=== PATIENT | male | born 1950 | race Caucasian/White ===

== ENCOUNTER → 2020-01-27 11:23 | Outpatient (CLI) | payer MEDICARE, SELFPAY ==
--- NOTE | ~2020-01-27 | CT_ITS ---
EXAMINATION:CT lung screening DATE: 01/27/2020 11:40 INDICATION: Personal history of tobacco dependence. Smoker who quit 11 years ago with 120 pack year h istory. TECHNIQUE: Computed tomography (CT) of the chest was performed without intravenous contrast. Automate d exposure control and iterative reconstruction technique were employed. The dose-length product (DLP ) was 362.55 mGy-cm. COMPARISON: Chest CT 01/09/2019 FINDINGS: The lungs demonstrate mild atelectasis. Again seen is a 6 mm nodule in left upper lobe. Dejan cified right lung nodules and calcified right hilar lymph nodes are consistent with old granulomatous disease. No pleural effusion. The heart size is normal. There are coronary artery calcifications. No pericardial effusion. There is a small sliding hiatal hernia. There is mild thoracic spondylosis. IMPRESSION: 1. Lung-RADS category 2: Benign appearance or behavior. Continue annual screening with noncontrast lo w-dose chest CT in 12 months. Reviewed, dictated and finalized at location A. CRUSHER IMPRESSION: 1. Lung-RADS category 2: Benign appearance or behavior. Continue annual screeni ng with noncontrast low-dose chest CT in 12 months.
== END ==
PROVIDERS: PCP Student in an Organized Health Care Education/Training Program; Visit Provider Student in an Organized Health Care Education/Training Program
DX: Z12.2 Encounter for screening for malignant neoplasm of respiratory organs (principal); Z87.891 Personal history of nicotine dependence
CPT/HCPCS: G0297

== ENCOUNTER 2020-11-26 11:15 | Emergency (ER) | payer MEDICARE, SELFPAY ==
[2020-11-26] VITALS (8 sets, daily range): BP systolic 115–135; BP diastolic 72–88; PULSE 72–169; RESP 14–20; TEMP 36.3–36.8; O2SAT 97–100
--- NOTE | ~2020-11-26 | XR_ITS ---
XR chest 1V portable 11/26/2020 11:55 Indication: Chest palpitations. Elevated heart rate. Atrial fibrillation. Hypertension. Procedure: AP portable chest Comparison: 06/22/2010 Findings: Patchy bilateral airspace disease, compatible with pneumonia. No significant effusion. No p neumothorax. Heart size is normal for technique. Impression: 1: Patchy subtle bilateral infiltrates, compatible with pneumonia. Reviewed, dictated and finalized at location A. Impression: 1: Patchy subtle bilateral infiltrates, compatible with pneumonia.
--- NOTE | 2020-11-26 11:17 | ECG_ITS ---
Measurements Intervals [place] Rate: 169 P: [place]: 0 QRS: -74 QRSD: 134 T: 75 QT: 285 QTc: 478 Interpretive Statements WIDE COMPLEX TACHYCARDIA IVCD, WITH FEATURES OF RBBB AND LBBB ABNORMAL ECG Electronically Signed On 11-26-2020 14:52:12 CDT by Trey Diehl D.O.
[2020-11-26 11:36] LABS: Basophils Percent Auto 0.7 % (0.2-1.2); Eosinophils Absolute Auto 0.1 K/mm3 (0-0.3); Eosinophils Percent Auto 2.3 % (0-4.4); Hematocrit 43.2 % (42.0-52.0); Hemoglobin 15.5 g/dL (14.0-18.0); Immature Granulocyte Absolute 0.05 K/mm3 (0.00-0.031); Immature Granulocyte Percent A 0.8 % (0-0.5); Lymphocytes Absolute Auto 1.17 K/mm3 (0.9-3.2); Lymphocytes Percent Auto 19.3 % (18.3-44.2); Mean Corpuscular HGB Conc 35.9 g/dl (32-36); Mean Corpuscular Hemoglobin 33.9 pg (26-34); Mean Corpuscular Volume 94.5 fl (80-100); Mean Platelet Volume 10.7 fl (7.4-10.4); Monocytes Absolute Auto 0.8 K/mm3 (0.1-0.6); Monocytes Percent Auto 12.5 % (2.6-8.5); Neutrophils Absolute Auto 3.9 K/mm3 (1.3-6.7); Neutrophils Percent Auto 64.4 % (45.5-73.1); Platelet Count Result 205 k/mm3 (150-375); Red Blood Count 4.57 M/mm3 (4.6-6.20); Red Cell Distribution Width 12.8 % (11.5-14.5); White Blood Count 6.1 K/mm3 (4.5-10.0)
[2020-11-26 11:44] LABS: INR 1.2; Prothrombin Time 14.7 Seconds (11.1-14.7)
[2020-11-26 11:45] LABS: Partial Thromboplastin Time 28.4 SECONDS (22.3-36.8)
--- NOTE | 2020-11-26 11:45 | ED.ARRPALP ---
HPI - Arrhythmia/Palpitations General Chief Complaint: Arrhythmia/Palpitations Stated Complaint: heart racing Time Seen by Provider: 11/26/20 11:28 Source: RN notes reviewed History of Present Illness HPI narrative: Patient presents emergency department from home for atrial fibrillation patient states he has a history of intermittent atrial fibrillation followed by Dr. Villanueva states that 930 this morning felt like he went into the A. fib and is continued with a rapid heart rate states he does feel some mild chest heaviness with the symptoms he denies any shortness of breath he denies any fevers or chills abdominal pain nausea or vomiting. He states he did take his Eliquis this morning as well as his propafenone and metoprolol he has not missed any doses of medication Related Data Home Medications Medication Instructions Recorded Confirmed apixaban 5 mg tablet 5 mg PO BID 04/13/19 12/14/19 cholecalciferol (vitamin D3) 50 2,000 unit PO DAILY 04/13/19 12/14/19 mcg (2,000 unit) tablet fenofibrate 160 mg tablet 160 mg PO DAILY 04/13/19 12/14/19 lisinopril 10 mg tablet 10 mg PO DAILY 04/13/19 12/14/19 metoprolol succinate 200 mg 200 mg PO DAILY 04/13/19 12/14/19 capsule sprinkle, ext. release 24 hr propafenone 425 mg 425 mg PO Q12H 04/13/19 12/14/19 capsule,extended release 12 hr atorvastatin 40 mg tablet 40 mg PO QPM tablet 04/14/19 12/14/19 icosapent ethyl [Vascepa] g PO QID 11/26/20 levothyroxine 200 mcg PO DAILY 11/26/20 omeprazole 20 mg PO DAILY 11/26/20 Allergies Allergy/AdvReac Type Severity Reaction Status Date / Time No Known Allergies Allergy Verified 11/26/20 11:29 Review of Systems Review of Systems: Gen.: Denies fevers or chills ENT: Denies congestion Respiratory: Denies shortness of breath or cough CV: See HPI GI: Denies abdominal pain nausea, emesis or diarrhea Musculoskeletal: Denies back pain or muscle pain Neuro: Denies numbness, tingling, weakness or focal weakness Skin: Denies rash Except as documented, all other systems reviewed and negative PMF Past Medical History Medical History (Updated 11/26/20 @ 13:35 by Richard Joya DO) Atrial fibrillation Family History Family History Other Family history of arthritis Family history of cardiovascular disease Family history of congestive heart failure Family history of seizure disorder Social History Social History Smoking status: Never smoker Exam Narrative: APPEARANCE: No acute distress, nontoxic, resting in bed EYES: EOMI HEENT: Normocephalic, atraumatic, OMM RESPIRATORY: No respiratory distress Clear to auscultation bilaterally with no rhonchi wheezing or rales. CARDIOVASCULAR: Tachycardic and irregular without murmurs rubs or gallops. ABDOMINAL: Soft, nontender, nondistended, no rebound or guarding MUSCULOSKELETAl: Moves all extremities. No clubbing, cyanosis or edema. NEURO: Awake and alert. Following commands, speech normal, no focal deficits SKIN:: Warm, dry. No rashes lesions or abrasions PSYCHIATRIC: Normal affect/mood, Course Course Emergency Course: Discussed initially with Dr. Villanueva will initially try adenosine is question of SVT versus A. fib Adenosine given with patient heart rate decreasing down into A. fib in the 120s and increasing back up into the 160s again discussed with Dr. Villanueva and at this time will try cardioversion Patient was synchronized cardioversion 150 J with return to sinus rhythm. Patient states chest pain resolved following cardioversion Discussed with Dr. Villanueva recommends watching patient for an hour after cardioversion recommends no further troponins if remains in sinus rhythm may be discharged her office will contact the patient Saturday Discussed with patient results of workup and diagnosis. Discussed need for follow-up with primary care, proper use of medicati
[2020-11-26 11:46] LABS: Anion Gap 11 mmol/L (8-16); Blood Urea Nitrogen 19 mg/dL (9-20); Calcium 9.8 mg/dL (8.4-10.2); Carbon Dioxide 26 mmol/L (22-30); Chloride 103 mmol/L (98-107); Estimated CRCL calculation 75 ml/min; Estimated Glomerular Filt Rate > 60; Glucose 225 mg/dL (65-110); Sodium 140 mmol/L (137-145)
[2020-11-26 11:58] LABS: Troponin I < 0.012 ng/mL (0.000-0.034)
[2020-11-26] MEDS: ADENOSINE IV SOLN 6 MG/2 ML VIAL 18 MG (12:01)
--- NOTE | 2020-11-26 12:07 | PC.NURSE ---
ERP ordered 6mg of adenosine via IVP via verbal order readback to determine underlying rhythm. 1201 6mg adenosine administered, rhythm captured on continuous EKG. 1201 ERP ordered 1L bolus of NS via verbal order readback and started.
--- NOTE | 2020-11-26 12:28 | PC.NURSE ---
1228 1mg versed given IVP by . 1228 patient synchronized cardioverted at 150J. Pt. HR 95 and cardioverted in a NSR. Repeat EKG ordered
--- NOTE | 2020-11-26 12:35 | ECG_ITS ---
Measurements Intervals [place] Rate: 92 P: 34 OR: 235 QRS: -65 QRSD: 141 T: 58 QT: 392 QTc: 485 Interpretive Statements SINUS RHYTHM WITH FIRST DEGREE AV BLOCK RIGHT BUNDLE BRANCH BLOCK LEFT ANTERIOR FASCICULAR BLOCK BASELINE WANDER- V1-V2 ABNORMAL ECG Electronically Signed On 11-28-2020 15:46:49 CDT by Trey Diehl D.O.
== END 2020-11-26 14:25 | disposition home or self-care (01) ==
PROVIDERS: Emergency Provider Emergency Medicine; PCP Student in an Organized Health Care Education/Training Program
DX: I48.91 Unspecified atrial fibrillation (principal); Z79.01 Long term (current) use of anticoagulants; R91.8 Other nonspecific abnormal finding of lung field; R00.0 Tachycardia, unspecified; I44.0 Atrioventricular block, first degree; I45.2 Bifascicular block; I45.9 Conduction disorder, unspecified
CPT/HCPCS: 36415; 71045; 80048; 84484; 85025; 85610; 85730; 92960; 93005; 99285; J0153; J2250; J7030

== ENCOUNTER → 2021-01-30 09:32 | Outpatient (CLI) | payer MEDICARE, SELFPAY ==
--- NOTE | ~2021-01-30 | CT_ITS ---
EXAMINATION: CT lung screening DATE: 01/30/2021 09:45 INDICATION: Personal history of nicotine dependence, prior smoker with 120 pack year history TECHNIQUE: Computed tomography (CT) of the chest was performed without intravenous contrast. The dose -length product (DLP) was 367.15 mGy-cm. Automated exposure control and iterative reconstruction tech [employer] were employed. COMPARISON: 01/27/2020 FINDINGS: There is a stable 6 mm nodule of the left upper lobe. No new pulmonary nodules are identifi ed. The lungs are free of acute opacities. There is no pleural effusion or pneumothorax. No pathologi zehra enlarged thoracic lymph nodes are identified. The heart size is normal. Calcified coronary jackson ry atherosclerosis is noted. There is mild thoracic spondylosis. A small sliding hiatal hernia is not ed. A stable calcified mass in the skin of the posterior left back likely represents a sebaceous cyst . IMPRESSION: 1. Lung-RADS category 2: Benign appearance or behavior. Continue annual screening with noncontrast lo w-dose chest CT in 12 months. Reviewed, dictated and finalized at location A. CONSULTANT IMPRESSION: 1. Lung-RADS category 2: Benign appearance or behavior. Continue annual screeni ng with noncontrast low-dose chest CT in 12 months.
== END ==
PROVIDERS: PCP Student in an Organized Health Care Education/Training Program; Visit Provider Student in an Organized Health Care Education/Training Program
DX: Z87.891 Personal history of nicotine dependence (principal)
CPT/HCPCS: 71271

== ENCOUNTER 2021-02-25 10:46 | Emergency (ER) | payer MEDICARE, SELFPAY ==
[2021-02-25] VITALS (37 sets, daily range): BP systolic 100–153; BP diastolic 67–103; PULSE 81–122; RESP 12–26; TEMP 36.3; O2SAT 93–98
--- NOTE | ~2021-02-25 | XR_ITS ---
EXAMINATION: XR chest 2V DATE: 02/25/2021 13:23 INDICATION: Palpitations. Atrial fibrillation. TECHNIQUE: Frontal and lateral views of the chest were obtained. COMPARISON: Chest 2 views 11/26/2020, chest CT 11/30/2020 FINDINGS: The chest demonstrates clear lungs without pneumonia, pleural effusion, or pneumothorax. Th e heart size is normal. There is a small hiatal hernia. IMPRESSION: 1. Small hiatal hernia. Reviewed, dictated and finalized at location A. ICATION SERVICES MANAGER IMPRESSION: 1. Small hiatal hernia.
--- NOTE | 2021-02-25 10:48 | ECG_ITS ---
Measurements Intervals [place] Rate: 104 P: WI: 0 QRS: -66 QRSD: 138 T: 63 QT: 360 QTc: 474 Interpretive Statements ATRIAL FIBRILLATION WITH RAPID VENTRICULAR RESPONSE RIGHT BUNDLE BRANCH BLOCK LEFT ANTERIOR FASCICULAR BLOCK BASELINE ARTIFACT- I, III ABNORMAL ECG Electronically Signed On 02-25-2021 13:30:34 [employer] G[employer] HAND FINISHER by Trey Diehl D.O.
[2021-02-25 13:21] LABS: Basophils Percent Auto 0.5 % (0.2-1.2); Eosinophils Absolute Auto 0.1 K/mm3 (0-0.3); Hematocrit 42.8 % (42.0-52.0); Hemoglobin 15.2 g/dL (14.0-18.0); Immature Granulocyte Absolute 0.07 K/mm3 (0.00-0.031); Immature Granulocyte Percent A 1.1 % (0-0.5); Lymphocytes Absolute Auto 1.16 K/mm3 (0.9-3.2); Lymphocytes Percent Auto 17.6 % (18.3-44.2); Mean Corpuscular HGB Conc 35.5 g/dl (32-36); Mean Corpuscular Hemoglobin 33.3 pg (26-34); Mean Corpuscular Volume 93.7 fl (80-100); Mean Platelet Volume 10.9 fl (7.4-10.4); Monocytes Absolute Auto 0.9 K/mm3 (0.1-0.6); Monocytes Percent Auto 13.4 % (2.6-8.5); Neutrophils Absolute Auto 4.3 K/mm3 (1.3-6.7); Neutrophils Percent Auto 65.4 % (45.5-73.1); Platelet Count Result 174 k/mm3 (150-375); Red Blood Count 4.57 M/mm3 (4.6-6.20); Red Cell Distribution Width 12.6 % (11.5-14.5); White Blood Count 6.6 K/mm3 (4.5-10.0)
[2021-02-25] MEDS: dilTIAZem HCl INJ 25 MG/5 ML VIAL 10 MG IV PUSH ×2 (13:28→16:51)
[2021-02-25 13:31] LABS: INR 1.3; Prothrombin Time 15.5 Seconds (11.1-14.7)
[2021-02-25 13:32] LABS: Partial Thromboplastin Time 32.9 SECONDS (22.3-36.8)
[2021-02-25 13:38] LABS: Alanine Aminotransferase 33 U/L (4-50); Albumin Level 4.4 g/dL (3.5-5.1); Alkaline Phosphatase 50 U/L (38-126); Anion Gap 7 mmol/L (8-16); Aspartate Amino Transferase 31 U/L (17-59); Bilirubin,Total 0.8 mg/dL (0.2-1.3); Blood Urea Nitrogen 14 mg/dL (9-20); Calcium 9.6 mg/dL (8.4-10.2); Carbon Dioxide 27 mmol/L (22-30); Chloride 103 mmol/L (98-107); Estimated CRCL calculation 101 ml/min; Estimated Glomerular Filt Rate > 60; Glucose 170 mg/dL (65-110); Potassium 3.9 mmol/L (3.4-5.0); Sodium 137 mmol/L (137-145)
[2021-02-25 13:43] LABS: NT Pro B Type Natriuretic Pept 219 pg/mL (5-100)
[2021-02-25 13:44] LABS: Troponin I < 0.012 ng/mL (0.000-0.034)
--- NOTE | 2021-02-25 14:05 | ED.ARRPALP ---
HPI - Arrhythmia/Palpitations General Chief Complaint: Arrhythmia/Palpitations Stated Complaint: SVT/Afib Time Seen by Provider: 02/25/21 12:44 History of Present Illness HPI narrative: Patient is a 70-year-old male who presents ER with heart palpitations. Patient has history of atrial fibrillation and SVT. He takes diltiazem as well as metoprolol and propafenone to help control rate. He follows with Dr. Villanueva. Reports he felt his heart rate increase this morning and has been going into the 130s. No chest pain or chest pressure. No difficulty breathing. Denies orthopnea. Related Data Home Medications Medication Instructions Recorded Confirmed apixaban 5 mg tablet 5 mg PO BID 04/13/19 12/14/19 cholecalciferol (vitamin D3) 50 2,000 unit PO DAILY 04/13/19 12/14/19 mcg (2,000 unit) tablet fenofibrate 160 mg tablet 160 mg PO DAILY 04/13/19 12/14/19 metoprolol succinate 200 mg 200 mg PO DAILY 04/13/19 12/14/19 capsule sprinkle, ext. release 24 hr propafenone 425 mg 425 mg PO Q12H 04/13/19 12/14/19 capsule,extended release 12 hr atorvastatin 40 mg tablet 40 mg PO QPM tablet 04/14/19 12/14/19 icosapent ethyl [Vascepa] 4 g PO QID 11/26/20 levothyroxine 200 mcg PO DAILY 11/26/20 omeprazole 20 mg PO DAILY 11/26/20 diltiazem HCl 120 mg PO 02/25/21 magnesium oxide 400 mg DAILY 02/25/21 02/25/21 Allergies Allergy/AdvReac Type Severity Reaction Status Date / Time No Known Allergies Allergy Verified 02/25/21 13:16 Review of Systems Review of Systems: All systems reviewed & are unremarkable except as noted in HPI and below Constitutional: Constitutional: Denies chills, Denies fever(s) and Denies weakness Cardiovascular: Cardiovascular: Denies chest pain, Reports rapid heart rate and Denies radiating jaw, neck or arm pain Respiratory: Respiratory: Denies cough, Denies dyspnea and Denies wheezing Gastrointestinal: Gastrointestinal: Denies abdominal pain, Denies nausea and Denies vomiting [facility] Past Medical History Medical History (Updated 02/25/21 @ 18:23 by Pacheco Rosas MD) Atrial fibrillation Type 2 diabetes mellitus Surgical History Surgical History (Updated 02/25/21 @ 14:08 by Pacheco Rosas MD) History of cardiac radiofrequency ablation Family History Family History Other Family history of arthritis Family history of cardiovascular disease Family history of congestive heart failure Family history of seizure disorder Social History Social History Smoking status: Never smoker Exam Narrative: GENERAL: Well-appearing, well-nourished, and in no acute distress. HEAD: Normocephalic, atraumatic. ENT: Mucous membranes moist. CHEST: Clear to auscultation. No respiratory distress. HEART: Irregular regular rate and rhythm that is tachycardic. Normal peripheral pulses. ABDOMEN: Soft, nontender, nondistended, normal active bowel sounds. EXTREMITIES: Normal range of motion. No edema. SKIN: Warm, dry, no rash. NEURO: Alert and oriented x3. PSYCH: Normal mood and affect. Course Course Emergency Course: Patient received IV diltiazem x2. Improved rate but did not convert to sinus. Discussed case with Dr. Small. Recommends giving oral dose of diltiazem CD 120 mg. Patient may then increase his home dose tomorrow morning to 250 mg daily. Discussed with patient. He feels comfortable plan. He will contact Dr. Villanueva on Saturday to schedule close follow-up appointment. He has been referred back to an EP physician. Vital Signs Vital signs: Vital Signs Temperature 97.4 F L 02/25/21 10:55 Pulse Rate 115 H 02/25/21 10:55 Respiratory Rate 16 02/25/21 10:55 Blood Pressure 153/96 H 02/25/21 10:55 Pulse Oximetry 97 02/25/21 10:55 Temperature 97.4 F L 02/25/21 10:55 Pulse Rate 106 H 02/25/21 18:01 Respiratory Rate 13 02/25/21 18:01 Blood Pressur
[2021-02-25 14:18] LABS: Magnesium 1.5 mg/dL (1.6-2.3)
== END 2021-02-25 18:46 | disposition home or self-care (01) ==
PROVIDERS: Emergency Provider Emergency Medicine; PCP Student in an Organized Health Care Education/Training Program
DX: I48.91 Unspecified atrial fibrillation (principal); E11.9 Type 2 diabetes mellitus without complications; E03.9 Hypothyroidism, unspecified; Z79.01 Long term (current) use of anticoagulants
CPT/HCPCS: 36415; 71046; 80053; 83735; 83880; 84484; 85025; 85610; 85730; 93005; 96374; 96376; 99284; A9270

== ENCOUNTER 2022-02-01 08:48 | Emergency (ER) | payer MEDICARE, SELFPAY ==
--- NOTE | ~2022-02-01 | XR_ITS ---
XR chest 1V portable DATE: 02/01/2022 09:52 INDICATION: Cough. Weakness. TECHNIQUE: Portable upright AP chest on 02/01/2022 at 0945 hours COMPARISON: 02/25/2021 PA and lateral chest FINDINGS: Heart size is within normal limits. Is mild aortic calcification and unfolding. Suggestion of minimal infiltrate or atelectasis in the lower lung zones. The lungs otherwise appear c lear. There is minimal if any pleural effusion. No pneumothorax. IMPRESSION: Limited single portable AP view suggesting minimal infiltrate or atelectasis at the lower lung zones Reviewed, dictated and finalized at location B. CH LANGUAGE PATHOLOGY ASSISTANT IMPRESSION: Limited single portable AP view suggesting minimal infiltrate or at electasis at the lower lung zones
--- NOTE | 2022-02-01 08:52 | ECG_ITS ---
Measurements Intervals [place] Rate: 73 P: -25 AR: 146 QRS: -56 QRSD: 127 T: 59 QT: 416 QTc: 459 Interpretive Statements SINUS RHYTHM LEFT ANTERIOR FASCICULAR BLOCK [QRS AXIS <= -45, QR IN I, RS IN II] COMPARED TO ECG 02/25/2021 10:52:57 SINUS RHYTHM REPLACES ATRIAL FIBRILLATION Electronically Signed On 02-02-2022 7:25:16 911 TELECOMMUNICATOR by Gus Small M.D.
[2022-02-01 09:01] VITALS: BP 141/69; PULSE 73; RESP 22; TEMP 37.5; O2SAT 95
[2022-02-01 09:29] LABS: Basophils Percent Auto 0.8 % (0.2-1.2); Eosinophils Percent Auto 0.3 % (0-4.4); Hematocrit 39.7 % (42.0-52.0); Immature Granulocyte Absolute 0.04 K/mm3 (0.00-0.031); Immature Granulocyte Percent A 1.1 % (0-0.5); Immature Platelet Fraction Pct 3.7 % (0.9-11.2); Lymphocytes Absolute Auto 0.38 K/mm3 (0.9-3.2); Lymphocytes Percent Auto 10.1 % (18.3-44.2); Mean Corpuscular HGB Conc 35.3 g/dl (32-36); Mean Corpuscular Hemoglobin 33.2 pg (26-34); Mean Corpuscular Volume 94.1 fl (80-100); Mean Platelet Volume 10.1 fl (7.4-10.4); Monocytes Absolute Auto 0.7 K/mm3 (0.1-0.6); Monocytes Percent Auto 19.6 % (2.6-8.5); Neutrophils Absolute Auto 2.6 K/mm3 (1.3-6.7); Neutrophils Percent Auto 68.1 % (45.5-73.1); Platelet Count Result 132 k/mm3 (150-375); Red Blood Count 4.22 M/mm3 (4.6-6.20); Red Cell Distribution Width 12.2 % (11.5-14.5); White Blood Count 3.8 K/mm3 (4.5-10.0)
[2022-02-01 09:37] LABS: Alanine Aminotransferase 103 U/L (6-50); Albumin Level 4.2 g/dL (3.5-5.1); Alkaline Phosphatase 37 U/L (38-126); Anion Gap 8 mmol/L (8-16); Aspartate Amino Transferase 153 U/L (17-59); Blood Urea Nitrogen 14 mg/dL (9-20); Calcium 8.9 mg/dL (8.4-10.2); Carbon Dioxide 25 mmol/L (22-30); Chloride 99 mmol/L (98-107); Estimated CRCL calculation 82 ml/min; Estimated Glomerular Filt Rate > 60; Glucose 131 mg/dL (65-110); Potassium 3.7 mmol/L (3.4-5.0); Sodium 132 mmol/L (137-145)
--- NOTE | 2022-02-01 09:40 | ED.WEAKNESS ---
HPI - Weakness General Chief complaint: Weakness Stated complaint: weakness Time Seen by Provider: 02/01/22 09:26 History of Present Illness HPI Narrative: 71-year-old male history of atrial fibrillation, diabetes, hypothyroidism presents to the emergency room for evaluation of generalized weakness. Patient states he has been experiencing a cough for the last 10 to 12 days, and also admits to decreased oral intake last 3 to 4 days. Patient states that he woke up several times throughout the night, fell. Denies any injuries. States the cause of his falls was due to generalized weakness. Patient reports that he was exposed to influenza 2 weeks ago and self diagnosed himself as having the flu. Patient denies shortness of breath difficulty breathing or chest pain. States the cough is unproductive. Denies fevers. Related Data Home Medications Medication Instructions Recorded Confirmed apixaban 5 mg tablet (Eliquis) 5 mg PO BID 04/13/19 12/14/19 cholecalciferol (vitamin D3) 50 2,000 unit PO DAILY 04/13/19 12/14/19 mcg (2,000 unit) tablet fenofibrate 160 mg tablet 160 mg PO DAILY 04/13/19 12/14/19 metoprolol succinate 200 mg 200 mg PO DAILY 04/13/19 12/14/19 capsule sprinkle, ext. release 24 hr propafenone 425 mg 425 mg PO Q12H 04/13/19 12/14/19 capsule,extended release 12 hr atorvastatin 40 mg tablet 40 mg PO QPM 04/14/19 12/14/19 icosapent ethyl 1 gram capsule 4 g PO QID 11/26/20 (Vascepa) levothyroxine 200 mcg tablet 200 mcg PO DAILY 11/26/20 omeprazole 20 mg capsule,delayed 20 mg PO DAILY 11/26/20 release diltiazem HCl 120 mg 120 mg PO 02/25/21 capsule,extended release 24 hr magnesium oxide 400 mg (241.3 mg 400 mg DAILY 02/25/21 02/25/21 magnesium) tablet Allergies Allergy/AdvReac Type Severity Reaction Status Date / Time No Known Allergies Allergy Verified 02/01/22 09:11 Review of Systems Review of Systems: CONSTITUTIONAL: Denies fever, chills, or sweats. EYES: Denies visual changes, redness, or discharge. ENT: Denies rhinorrhea, congestion, sore throat, or otalgia. CARDIOVASCULAR: Denies chest pain, palpitations, or edema. RESPIRATORY: Reports cough GASTROINTESTINAL: Denies abdominal pain, nausea, vomiting, or diarrhea. GENITOURINARY: Denies dysuria or hematuria. SKIN: Denies rash or itching. MUSCULOSKELETAL: Denies back pain, joint pain, or myalgia. NEUROLOGIC: Reports weakness PSYCHIATRIC: Denies anxiety or depression. [facility] Past Medical History Medical History Atrial fibrillation Type 2 diabetes mellitus Surgical History Surgical History History of cardiac radiofrequency ablation Family History Family History Other Family history of arthritis Family history of cardiovascular disease Family history of congestive heart failure Family history of seizure disorder Social History Social History Smoking status: Never smoker Exam Narrative: GENERAL: Chronically ill appearing, well-nourished HEAD: Normocephalic, atraumatic. EYES: Conjunctivae normal, PERRLA and EOMI. NECK: Supple. CHEST: Clear to auscultation. No respiratory distress. No wheezes rales or rhonchi. HEART: Regular rate and rhythm. No murmur heard. Normal peripheral pulses. EXTREMITIES: Normal range of motion. No edema. No clubbing or cyanosis SKIN: Warm, dry, no rash. No noted wounds NEURO: No focal deficits. Alert and oriented x3. MAEW. CN's II-XI intact bilaterally PSYCH: Cooperative. Normal mood and affect. Course Vital Signs Vital signs: Vital Signs Temperature 37.5 C 02/01/22 09:01 Pulse Rate 73 02/01/22 09:01 Respiratory Rate 22 H 02/01/22 09:01 Blood Pressure 141/69 H 02/01/22 09:01 Pulse Oximetry 95 02/01/22 09:01 Oxygen Delivery Room Air 02/01/22
[2022-02-01 09:57] LABS: Lipase 73 U/L (23-300)
[2022-02-01 10:03] LABS: Influenza A QL RT-PCR Negative (Negative); Influenza B QL RT-PCR Negative (Negative); RSV RNA, RT-PCR Negative (Negative); SARS-CoV-2 RNA PCR Positive
[2022-02-01 10:10] LABS: Troponin I < 0.012 ng/mL (0.000-0.034)
[2022-02-01 11:53] VITALS: BP 156/87; PULSE 87; RESP 18; O2SAT 98
== END 2022-02-01 11:54 | disposition home or self-care (01) ==
PROVIDERS: Emergency Medicine; Emergency Provider Nurse Practitioner Family; PCP Student in an Organized Health Care Education/Training Program
DX: U07.1 COVID-19 (principal); I48.91 Unspecified atrial fibrillation; E11.9 Type 2 diabetes mellitus without complications; E03.9 Hypothyroidism, unspecified; Z79.84 Long term (current) use of oral hypoglycemic drugs; Z79.85 Long-term (current) use of injectable non-insulin antidiabetic drugs; Z79.01 Long term (current) use of anticoagulants; I44.4 Left anterior fascicular block
CPT/HCPCS: 36415; 71045; 80053; 83690; 84484; 85025; 85055; 87637; 93005; 99284

== ENCOUNTER 2022-03-28 06:51 | Outpatient (CLI) | payer MEDICARE, SELFPAY ==
--- NOTE | ~2022-03-28 | CT_ITS ---
EXAMINATION: CT abdomen pelvis wo con DATE: 03/28/2022 07:17 INDICATION: Hematuria. TECHNIQUE: Computed tomography (CT) of the abdomen and pelvis was performed without intravenous contr ast. Automated exposure control and iterative reconstruction technique were employed. The dose-length product was 1503.68 mGy-cm. COMPARISON: Chest CT 01/30/2021 FINDINGS: The visualized portions of the lung bases demonstrate mild atelectasis. No pleural effusion . The heart size is normal. There are coronary artery calcifications. No pericardial effusion. There is a moderate-sized sliding hiatal hernia. Calcifications in the liver and spleen are consistent with old granulomatous disease. There are changes of cholecystectomy. The pancreas, adrenal glands, and k idneys are normal. There is no urolithiasis. The prostate is moderately enlarged. There is diverticul osis of the colon without evidence of diverticulitis. There are no dilated loops of bowel. The append ix is normal. There are no pathologically enlarged lymph nodes. There is no free intraperitoneal flui d. There is severe thoracic spondylosis and moderate lumbar spondylosis. IMPRESSION: 1. No specific etiology for hematuria. 2. Moderate-sized sliding hiatal hernia. Reviewed, dictated and finalized at location A. ING PINNER
== END 2022-03-28 06:52 | disposition home or self-care (01) ==
PROVIDERS: PCP Student in an Organized Health Care Education/Training Program; Visit Provider Internal Medicine Cardiovascular Disease
DX: N02.9 Recurrent and persistent hematuria with unspecified morphologic changes (principal); K44.9 Diaphragmatic hernia without obstruction or gangrene
CPT/HCPCS: 74176

== ENCOUNTER 2022-04-04 07:40 | Outpatient (CLI) | payer MEDICARE, SELFPAY ==
--- NOTE | 2022-04-04 12:45 | WPDPFTINT ---
PFT Procedure Performed PFT Procedure Performed Plethysmography (Lung Vol) Diffusing Cap (DLCO) Flow Vol Loop Spirometry w/o Bronchodil PFT Interpretation This is a pulmonary function test with spirometry, plethysmography and diffusing capacity. The test was performed and results interpreted in accordance with the 2019 and 2005 ATS/ERS Task Force guidelines respectively using the Global Lung Function Initiative-2012 reference equations. Patient demonstrated good effort and cooperation. Reproducibility criteria were met. The quality of the spirometry maneuver was Grade A. Findings: Spirometry: The contour the inspiratory and expiratory flow tracing are normal. The FVC is 3.92 L, 95% predicted. The FEV1 is 2.66 L, 85% predicted. The FEV1: FVC ratio 68%. Plethysmography: The total lung capacity is 6.47 L, 92% predicted. The functional residual capacity is 3.41 L, 91% predicted. The residual volume is 2.55 L, 101% predicted. Diffusion capacity: The diffusing capacity unadjusted for hemoglobin and carboxyhemoglobin is 24.8, 98% predicted. The diffusing capacity adjusted for alveolar volume is 4.74, 123% predicted. Impression: The spirometry is normal without evidence of an obstructive abnormality. The lung volumes are normal. The diffusing capacity is normal. There are no prior studies for comparison
== END 2022-04-04 07:41 | disposition home or self-care (01) ==
PROVIDERS: PCP Student in an Organized Health Care Education/Training Program; Visit Provider Internal Medicine Cardiovascular Disease
DX: Z51.81 Encounter for therapeutic drug level monitoring (principal); Z79.899 Other long term (current) drug therapy
CPT/HCPCS: 94375; 94726; 94729

== ENCOUNTER 2023-01-13 00:58 | Observation (INO) | payer MEDICARE, SELFPAY ==
[2023-01-13] VITALS (10 sets, daily range): BP systolic 108–139; BP diastolic 79–92; PULSE 95–124; RESP 16–20; TEMP 36–36.8; O2SAT 94–100; BMI 43.1
--- NOTE | ~2023-01-13 | XR_ITS ---
EXAMINATION: XR chest 1V portable DATE: 01/13/2023 04:17 INDICATION: Palpitations. TECHNIQUE: A single frontal view of the chest was obtained on 2 radiographs. COMPARISON: Chest single view 02/01/2022, CT abdomen and pelvis 03/28/2022 FINDINGS: There is mild atelectasis in left lower lung zone. No pleural effusion or pneumothorax. Car diomegaly is noted. There is a moderate-sized hiatal hernia. IMPRESSION: 1. Mild atelectasis in left lower lung zone. 2. Cardiomegaly. 3. Moderate-sized hiatal hernia. Reviewed, dictated and finalized at location E. TRUCKER
--- NOTE | 2023-01-13 00:59 | ECG_ITS ---
Measurements Intervals [place] Rate: 121 P: [place]: 0 QRS: -68 QRSD: 113 T: 84 QT: 320 QTc: 456 Interpretive Statements ATRIAL FIBRILLATION WITH RAPID VENTRICULAR RESPONSE INCOMPLETE RIGHT BUNDLE BRANCH BLOCK LEFT ANTERIOR FASCICULAR BLOCK BORDERLINE ST-T WAVE ABNORMALITY- HIGH LATERAL LEADS BASELINE ARTIFACT- I, AVL ABNORMAL ECG COMPARED TO ECG 02/01/2022 08:58:23 ATRIAL FIBRILLATION NOW PRESENT Electronically Signed On 01-13-2023 6:59:32 FILER FINISH by Trey Diehl D.O.
--- NOTE | 2023-01-13 02:56 | ED.ARRPALP ---
HPI - Arrhythmia/Palpitations General Chief Complaint: Arrhythmia/Palpitations Stated Complaint: im in afib Time Seen by Provider: 01/13/23 01:57 Source: patient Limitations: no limitations History of Present Illness HPI narrative: Patient is a 72-year-old male presents to the emergency department complaining of palpitations that started around 7:00 p.m. tonight. Patient states he has been feeling well aside the palpitations both preceding the palpitations and throughout the palpitations. Patient is to history of atrial fibrillation for which he is on multiple medications in taking the most prescribed. Patient states that he takes his blood thinners prescribed, is taking metoprolol 200 as prescribed and also taking diltiazem 240 mg as prescribed. Patient states his diltiazem was doubled back in October. 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 Patient denies cough, chest pain, shortness of breath, lightheadedness, recent injuries, recent illness, abdominal pain, nausea, vomiting, melena, hematochezia, numbness, weakness. Related Data Home Medications Medication Instructions Recorded Confirmed apixaban 5 mg tablet (Eliquis) 5 mg PO Q12H 04/13/19 01/13/23 fenofibrate 160 mg tablet 160 mg PO DAILY 04/13/19 01/13/23 atorvastatin 40 mg tablet 40 mg PO HS 04/14/19 01/13/23 levothyroxine 200 mcg tablet 200 mcg PO DAILY 11/26/20 01/13/23 Lactobacillus 1 cap PO DAILY 01/13/23 01/13/23 acidophilus-Bifidobac.animalis 2.5 billion cell capsule (Daily Probiotic) PreserVision AREDS-2 1 tab-cap BYMOUTH DAILY 01/13/23 01/13/23 cholecalciferol (vitamin D3) 125 5,000 unit PO DAILY 01/13/23 01/13/23 mcg (5,000 unit) tablet (Vitamin D3) diltiazem HCl 240 mg 240 mg PO DAILY 01/13/23 01/13/23 capsule,extended release 24 hr, controlled losartan 25 mg tablet 12.5 mg PO DAILY 01/13/23 01/13/23 metformin 500 mg tablet,extended 500 mg PO BIDWM 01/13/23 01/13/23 release 24hr metoprolol succinate 200 mg 200 mg PO DAILY 01/13/23 01/13/23 tablet,extended release 24 hr tamsulosin 0.4 mg capsule 0.4 mg PO HS 01/13/23 01/13/23 vibegron 75 mg tablet (Gemtesa) 75 mg PO QPM 01/13/23 01/13/23 Allergies Allergy/AdvReac Type Severity Reaction Status Date / Time No Known Allergies Allergy Verified 01/13/23 05:38 Review of Systems Review of Systems: A 10 system review of systems was completed on the patient and is negative except for what is stated in the HPI. Nursing and ancillary documentation was reviewed. [facility] Past Medical History Medical History Atrial fibrillation Type 2 diabetes mellitus Surgical History Surgical History History of cardiac radiofrequency ablation Family History Family History Other Family history of arthritis Family history of cardiovascular disease Family history of congestive heart failure Family history of seizure disorder Social History Social History Smoking status: Former smoker Alcohol intake: former Substance use: never Lack of Transportation: No Lack of Food: Never True Current Housing: I Have Housing Concerned About Future Housing: No Difficulty Paying Gas/Electric Bills: No Difficulty Paying for Meds: No Currently Unemployed: No Education: Decline to Answer Difficulty w/ Childcare or Family Care: No Spiritual care concerns: No Comments At time of signature, I have reviewed and agree with nursing past medical, surgical, social and family history unless otherwise noted. Please see the nursing chart for further information. There is no relevant family history pertinent to the presenting complaint. Exam Narrative: CONST: No acute distress. Well nourished. Obese. HENMT: Head is normocephalic and atraumatic. Peter
[2023-01-13] MEDS: dilTIAZem HCl INJ 25 MG/5 ML VIAL 10 MG IV PUSH (03:08)
[2023-01-13 03:13] LABS: Basophils Absolute Auto 0.1 K/mm3 (0.0-0.1); Basophils Percent Auto 0.9 % (0.2-1.2); Eosinophils Absolute Auto 0.1 K/mm3 (0-0.3); Eosinophils Percent Auto 1.7 % (0-4.4); Hematocrit 45.2 % (42.0-52.0); Hemoglobin 15.5 g/dL (14.0-18.0); Immature Granulocyte Absolute 0.06 K/mm3 (0.00-0.031); Immature Granulocyte Percent A 1.1 % (0-0.5); Lymphocytes Absolute Auto 0.97 K/mm3 (0.9-3.2); Mean Corpuscular HGB Conc 34.3 g/dl (32-36); Mean Corpuscular Hemoglobin 32.6 pg (26-34); Mean Platelet Volume 10.4 fl (7.4-10.4); Monocytes Absolute Auto 0.7 K/mm3 (0.1-0.6); Neutrophils Absolute Auto 3.5 K/mm3 (1.3-6.7); Neutrophils Percent Auto 65.3 % (45.5-73.1); Platelet Count Result 199 k/mm3 (150-375); Red Blood Count 4.76 M/mm3 (4.6-6.20); Red Cell Distribution Width 12.9 % (11.5-14.5); White Blood Count 5.4 K/mm3 (4.5-10.0)
[2023-01-13 03:22] LABS: Alanine Aminotransferase 28 U/L (6-50); Albumin Level 4.6 g/dL (3.5-5.1); Alkaline Phosphatase 36 U/L (38-126); Anion Gap 14 mmol/L (8-16); Aspartate Amino Transferase 32 U/L (17-59); Bilirubin,Total 0.9 mg/dL (0.2-1.3); Blood Urea Nitrogen 19 mg/dL (9-20); Carbon Dioxide 21 mmol/L (22-30); Chloride 107 mmol/L (98-107); Estimated CRCL calculation 111 ml/min; Estimated Glomerular Filt Rate > 60; Glucose 175 mg/dL (65-110); Magnesium 1.6 mg/dL (1.6-2.3); Potassium 4.5 mmol/L (3.4-5.0); Sodium 142 mmol/L (137-145)
[2023-01-13 03:23] LABS: INR 1.2; Prothrombin Time 15.8 Seconds (11.1-14.7)
[2023-01-13 03:24] LABS: Partial Thromboplastin Time 31.5 SECONDS (22.3-36.8)
[2023-01-13 03:33] LABS: NT Pro B Type Natriuretic Pept 845 pg/mL (19.9-100); Troponin I < 0.012 ng/mL (0.000-0.034)
[2023-01-13 03:34] LABS: Troponin I < 0.012 ng/mL (0.000-0.034)
[2023-01-13] MEDS: dilTIAZem 100 MG/100 ML 100 MG/100 ML BAG IV CONT (04:19)
[2023-01-13] MEDS: MAGNESIUM SULF 2 GM/WATER 50ML 2 GM/50 ML BAG IVPB (04:21)
--- NOTE | 2023-01-13 04:42 | PM.IMHP ---
H&P: HPI History of Present Illness Date/Time: 01/13/23 04:42 Chief Complaint: palpitations Narrative: 72-year-old male with past medical history significant for morbid obesity, atrial fibrillation, rate controlled anticoagulated, hypothyroidism, type diabetes mellitus. Patient presents to the emergency room due to uncontrolled heart rate episode of palpitations checked his heart rate with his pulse oximeter at home and showed that his heart rate was in the 100 and 20s to 100 and 40s and decided to present to the emergency room. Denies dizziness, lightheadedness, shortness of breath, chest pain, no syncope no near syncope, no fevers, no chills, no rigors. Patient was placed on diltiazem drip. Review of Systems Review of Systems: palpitations Constitutional: Constitutional: Denies chills, Denies fever(s), Denies malaise, Denies night sweats and Denies weakness Eyes: Eyes: Denies change in vision ENT: Denies dysphagia and Denies odynophagia Cardiovascular: Cardiovascular: Denies chest pain, Reports leg edema, Denies radiating jaw, neck or arm pain and Denies palpitations Respiratory: Respiratory: Denies cough, Denies excessive phlegm production and Denies dyspnea Gastrointestinal: Gastrointestinal: Denies abdominal pain, Denies dyspepsia, Denies heartburn, Denies diarrhea, Denies nausea and Denies vomiting Genitourinary: Genitourinary: Denies dysuria Musculoskeletal: Musculoskeletal: Denies myalgias Integumentary/Breasts: Skin/Breast: Denies rash Neurologic: Denies focal weakness and Denies Sensory deficit (Neuro) Psychiatric: Psychiatric: Reports no additional psychiatric complaints and Reports as per HPI Endocrine: Endocrine: Denies cold intolerance, Denies fatigue, Denies flushing, Denies heat intolerance, Denies polyphagia, Denies polydipsia and Denies palpitations Hematologic/Lymphatic: Hematologic/Lymphatic: Reports no additional hematologic/lymphatic complaints and Reports as per HPI Allergic/Immunologic: Allergic/Immunologic: Reports no additional allergic/immunologic complaints and Reports as per HPI PMF Past Medical History Medical History Atrial fibrillation Type 2 diabetes mellitus Surgical History Surgical History History of cardiac radiofrequency ablation Family History Family History Other Family history of arthritis Family history of cardiovascular disease Family history of congestive heart failure Family history of seizure disorder Social History Social History Smoking status: Never smoker Meds Home Medications and Allergies Home Medications Medication Instructions Recorded Confirmed Type apixaban 5 mg tablet (Eliquis) 5 mg PO Q12H 04/13/19 01/13/23 History fenofibrate 160 mg tablet 160 mg PO DAILY 04/13/19 01/13/23 History atorvastatin 40 mg tablet 40 mg PO HS 04/14/19 01/13/23 History semaglutide 1 mg/dose (2 mg/1.5 1 mg (0.75 mL) subcut WEEKLY 90 03/29/20 01/13/23 Rx mL) subcutaneous pen injector days #9 mL (Ozempic) levothyroxine 200 mcg tablet 200 mcg PO DAILY 11/26/20 01/13/23 History Lactobacillus 1 cap PO DAILY 01/13/23 01/13/23 History acidophilus-Bifidobac.animalis 2.5 billion cell capsule (Daily Probiotic) PreserVision AREDS-2 1 tab-cap BYMOUTH DAILY 01/13/23 01/13/23 History cholecalciferol (vitamin D3) 125 5,000 unit PO DAILY 01/13/23 01/13/23 History mcg (5,000 unit) tablet (Vitamin D3) diltiazem HCl 240 mg 240 mg PO DAILY 01/13/23 01/13/23 History capsule,extended release 24 hr, controlled losartan 25 mg tablet 12.5 mg PO DAILY 01/13/23 01/13/23 History metformin 500 mg tablet,extended 500 mg PO BIDWM 01/13/23 01/13/23 History release 24hr metoprolol succinate 200 mg 200 mg PO DAILY 01/13/23
[2023-01-13 04:44] LABS: Free T4 Free Thyroxine Reflex 2.04 ng/dL (0.78-2.19)
[2023-01-13 05:20] LABS: Troponin I < 0.012 ng/mL (0.000-0.034)
[2023-01-13 05:44] LABS: Total Triiodothyronine (T3) 0.99 NG/ML (0.97-1.69)
--- NOTE | 2023-01-13 07:45 | ADMGEN ---
This patient, Meek Auguste, was admitted to IMU Room 205-02 at 0520. Patient/family oriented to hospital policies and general routines including ID bracelet, bed and alarms, visiting hours, pain management, procedures, bathroom and other care routines, personal items, smoking policy, room service/diet, and visiting hours. Information on how to activate the Rapid Response Team has been discussed. Patient/Family are encouraged to report perceived risks to care and to ask questions if they do not understand what they are told or what they should do.
--- NOTE | 2023-01-13 09:03 | PM.CNCAR ---
Assessment and Plan Assessment and plan (1) Atrial fibrillation with RVR: Code(s): I48.91 - Unspecified atrial fibrillation Status: Acute Assessment and Plan: Patient with persistent AFib who was admitted through the ER with palpitations and a fib rapid ventricular rate. Unclear why his heart rate was higher than average yesterday but was otherwise feeling walked fine and heart rate is now controlled with an additional 5 milligrams/hour of diltiazem. Discussed options with patient. To prevent recurrent RVR we should do something different. We can increase the metoprolol, but that may cause excessive fatigue. We can increase the diltiazem, but that can cause wprsening of his edema. We can resume amiodarone but I am concerned about long-term toxicity since he had been experiencing some mildly elevated liver enzymes and elevated TSH. Another option is to add digoxin which I think is the best option. In addition it would be a good idea for him to see an rough rounder to see if there are any other things we should do. (Doubt patient needs AV node ablation and pacemaker at this time, and doubt AFib ablation is a great option at this point since he has had persistent AFib, morbid obesity etc., but still I would like an opinion. ) After discussion we decided to proceed with digoxin. Discussed risks benefits and toxicities. .--digoxin 0.5 mg IV push x1 today --discharge on digoxin 0.25 mg daily --continue metoprolol XL 200 mg daily and diltiazem CD 240 mg daily --periodic digoxin levels --outpatient monitoring through our office --follow-up with Dr. Snow, rough rounder, for further advice --hopefully discharge later today if heart rate control is reasonable. (2) Hypothyroidism, acquired: Code(s): E03.9 - Hypothyroidism, unspecified Status: Acute Assessment and Plan: TSH now normal, on levothyroxine 200 mcg daily (3) Elevated liver enzymes: Code(s): R74.8 - Abnormal levels of other serum enzymes Status: Acute Assessment and Plan: History of elevated LFTs, now normal. History of Present Illness History of Present Illness Consult date/time: 01/13/23 09:03 Reason For Visit: Atrial fibrillation with RVR Narrative: Meek Auguste is a 72-year-old male whom I was asked to see at the request of Dr. Brice for my advice and opinion regarding his AFib RVR, in consultation. History of PAF, SVT ablation by Dr. 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 He failed propafenone therapy and was started on amiodarone in April 2021. When I saw him in August 2022 he thought he was in AFib most the time so we decided to stop the potentially toxic drug, amiodarone (pt had intermittently mildly elevated LFTs and a mildly elevated TSH), and pursue a rate control strategy. we increased the diltiazem, continued metoprolol. On follow-up in October he was doing well, feeling his heart rate was better controlled, only 1 or 2 episodes of elevated heart rate. His pulse in the office was 112 and apically was 98-102 and we decided to continue current therapy. The patient reports that generally his heart rate is in the upper 80s to low 90s per his oximeter and Cardio Elsy. Occasionally after activity will be up to 115-120 but for short period of time then quickly goes back to his normal. Yesterday evening, he notices heart rate continued to climb and state up in the 120s. Per our prior discussions, if he had a sustained heart rate greater than 120 he was to go to the emergency room, with a heart rate in the 120s. He was not having any shortness of breath, chest pain, dizziness. He was started on a Cardizem drip and admitted overnight for observation. He is feeling well this morning hopes to be discharged. He hogue
[2023-01-13] MEDS: metFORMIN HCL XR 500 MG TAB.SR.24H PO (11:03)
[2023-01-13] MEDS: METOPROLOL SUCCINATE EXT REL 100 MG TABCR 200 MG PO (11:03)
[2023-01-13] MEDS: dilTIAZem HCL CD 240 MG CAP.24HR PO (11:03)
[2023-01-13] MEDS: APIXABAN 5 MG TABLET PO (11:04)
[2023-01-13] MEDS: DIGOXIN INJ 250 MCG/ML 2 ML AMP (*BKC) 500 MCG IV PUSH (11:04)
--- NOTE | 2023-01-13 11:42 | PM.DS ---
DS: Admitting Diagnosis Discharge Date 01/13/23 Admitting Diagnosis afib rvr DS: Discharge Diagnosis Discharge Diagnosis (1) Atrial fibrillation with RVR: Code(s): I48.91 - Unspecified atrial fibrillation Status: Acute (2) Type 2 diabetes mellitus with hyperglycemia, without long-term current use of insulin: Code(s): E11.65 - Type 2 diabetes mellitus with hyperglycemia Status: Acute (3) Diabetic peripheral neuropathy: Code(s): E11.42 - Type 2 diabetes mellitus with diabetic polyneuropathy Status: Acute (4) Morbid obesity with BMI of 45.0-49.9, adult: Code(s): E66.01 - Morbid (severe) obesity due to excess calories; Z68.42 - Body mass index [BMI] 45.0-49.9, adult Status: Acute DS: Summary Hospital Course Hospital Course: Patient is a 72-year-old male presents to the emergency department complaining of palpitations that started around 7:00 p.m. tonight.? Patient states he has been feeling well aside the palpitations both preceding the palpitations and throughout the palpitations.? Patient has history of atrial fibrillation for which he is on multiple medications in taking the most prescribed.? Patient states that he takes his blood thinners prescribed, is taking metoprolol 200 as prescribed and also taking diltiazem 240 mg as prescribed.? Patient states his diltiazem was doubled back in October.? 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 Patient denies cough, chest pain, shortness of breath, lightheadedness, recent injuries, recent illness, abdominal pain, nausea, vomiting, melena, hematochezia, numbness, weakness. patinet started on diltiazem gtt. cardiology consulted. added digoxin and stopped diltiazem gtt. rate controlled. okay to dc home per cardiology. fu with cardiology as op basis. Time Spent with Patient Time attestation: Total time spent providing and/or coordinating discharge services:35 mins Exam Narrative: CONST: No acute distress. Well nourished.? Obese. HENMT: Head is normocephalic and atraumatic. Moist mucous membranes. No posterior oropharynx erythema. EYES: No conjunctival icterus, injection, or pallor. PERRL. NECK: No meningeal signs.? No JVD. RESP: Able to speak in full sentences. Normal respiratory effort. CTAB. CARDIO:? rate controlled.? Irregularly irregular rhythm. 2+ DP and radial pulses bilaterally. GI: Nondistended. No tenderness to palpation. Soft. : No CVA tenderness to palpation. SKIN: No rashes or lesions noted on exposed skin. NEURO: Oriented x3. Moves all extremities. EXTREM/MSK/BACK:? Bilateral 1+ lower extremity pitting edema. PSYCH: Normal affect. DS: Data Data Completed and Pending Labs on day of discharge: Labs from last 24 hours 01/13/23 01/13/23 01/13/23 04:51 03:06 03:06 WBC 5.4 RBC 4.76 Hgb 15.5 Hct 45.2 MCV 95.0 MCH 32.6 MCHC 34.3 RDW 12.9 Plt Count 199 D MPV 10.4 Immature Gran % (Auto) 1.1 H Neut % (Auto) 65.3 Lymph % (Auto) 18.0 L Barren % (Auto) 13.0 H Eos % (Auto) 1.7 Baso % (Auto) 0.9 Lymph # (Auto) 0.97 Barren # (Auto) 0.7 H Eos # (Auto) 0.1 Baso # (Auto) 0.1 Abs Immat Gran (auto) 0.06 H Absolute Neuts (auto) 3.5 Absolute Nucleated RBC 0.0 Nucleated RBC % 0.0 PT 15.8 H INR 1.2 APTT 31.5 Sodium 142 Potassium 4.5 Chloride 107 Carbon Dioxide 21 L Anion Gap 14 BUN 19 Creatinine 0.70 Estim Creat Clear Calc 111 Estimated GFR > 60 Glucose 175 H Calcium 10.0 Magnesium 1.6 Total Bilirubin 0.9 AST 32 ALT 28 Alkaline Phosphatase 36 L Troponin I < 0.012 < 0.012 < 0.012 NT-Pro-B Natriuret Pep 845 H Total Protein 8.0 Albumin 4.6 TSH (Reflex) 4.550 Free T4 2.04 Total T3 0.99 Imaging Radiologist's impression: ITS Impressions Chest X-Ray 01/13/23 05:09 IMPRESSION: 1. Mild atelectasis in left lower lung zone. 2. Cardiomegaly. 3. Moderate-si
== END 2023-01-13 13:10 | disposition home or self-care (01) ==
LOC: ANHED 04:04 → ANHIMU 07:48
PROVIDERS: Admitting Provider Internal Medicine; Emergency Provider Student in an Organized Health Care Education/Training Program; PCP Student in an Organized Health Care Education/Training Program; Visit Provider Internal Medicine
DX: I48.91 Unspecified atrial fibrillation (principal); E11.65 Type 2 diabetes mellitus with hyperglycemia; E11.42 Type 2 diabetes mellitus with diabetic polyneuropathy; E66.01 Morbid (severe) obesity due to excess calories; E03.9 Hypothyroidism, unspecified; K44.9 Diaphragmatic hernia without obstruction or gangrene; J98.11 Atelectasis; I11.9 Hypertensive heart disease without heart failure; K21.9 Gastro-esophageal reflux disease without esophagitis; E78.5 Hyperlipidemia, unspecified; G47.30 Sleep apnea, unspecified; Z99.89 Dependence on other enabling machines and devices; R74.01 Elevation of levels of liver transaminase levels; R74.8 Abnormal levels of other serum enzymes; R94.6 Abnormal results of thyroid function studies; Z68.41 Body mass index [BMI] 40.0-44.9, adult; Z79.01 Long term (current) use of anticoagulants; Z87.891 Personal history of nicotine dependence; Z79.84 Long term (current) use of oral hypoglycemic drugs; Z79.85 Long-term (current) use of injectable non-insulin antidiabetic drugs; Z79.899 Other long term (current) drug therapy; Z82.49 Family history of ischemic heart disease and other diseases of the circulatory system
CPT/HCPCS: 36415; 71045; 80053; 83735; 83880; 84439; 84443; 84480; 84484; 85025; 85610; 85730; 93005; 96374; 96375; 96376; 99285; A9270; G0378; J1160; J3475